=== PATIENT | female | born 1960 | race Caucasian/White ===

== ENCOUNTER 2017-07-03 07:04 | Emergency (ER) | payer MEDICARE, OTHER ==
[2017-07-03 07:40] VITALS: BP 120/76
--- NOTE | 2017-07-03 08:01 | UC ---
Cardiac HPI - HPI Summary HPI Summary: Right sided chest pain constant for two days. It hurts more take a deep breath in and to cough. She has no hx of cardiac disease or blood clots. No significant cough and no fever. - History of Current Complaint Chief Complaint: UCChestPain Stated Complaint: RIGHT SIDED UPPER CHEST PAIN Time Seen by Provider: 07/03/17 07:11 Hx Obtained From: Patient, Family/Shirt Operator Hx Last Menstrual Period: n/a Onset/Duration: Gradual Onset, Lasting Days, Still Present Timing: Constant Initial Severity: Moderate Current Severity: Moderate Chest Pain Location: Discrete at:, Right Anterior Character: Dull/Aching Aggravating Factor(s): Position, Deep Breaths Alleviating Factor(s): Rest Associated Signs & Symptoms: Positive: Back Pain - chronic back pain.. Negative : SOB - she denies air hunger but feels pain which she states makes her catch her breath but no sob at rest or with walking. PMH/Surg Hx/FS Hx/Imm Hx Previously Healthy: No - Surgical History Surgical History: Yes Surgery Procedure, Year, and Place: tubal ligation,cholecystectomy, tonsils, right elbow - Family History Known Family History: Positive: Other - no known dvt or pe. - Social History Occupation: Disabled Lives: With Family Alcohol Use: Occasionally Substance Use Type: None Smoking Status (MU): Former Smoker When Did the Patient Quit Smoking/Using Tobacco: 2008 Review of Systems Cardiovascular: Chest Pain All Other Systems Reviewed And Are Negative: Yes Physical Exam Triage Information Reviewed: Yes Appearance: Well-Appearing, No Pain Distress, Well-Nourished Vital Signs: Initial Vital Signs Temp 97.9 F 07/03/17 07:07 Pulse 52 07/03/17 07:07 Resp 18 07/03/17 07:07 BP 120/76 07/03/17 07:07 Pulse Ox 100 07/03/17 07:07 Vital Signs Reviewed: Yes Eyes: Positive: Conjunctiva Clear ENT: Positive: Normal ENT inspection. Negative: Pharyngeal erythema Neck: Positive: Supple, Nontender, No Lymphadenopathy Respiratory Exam: Normal Respiratory: Positive: Lungs clear, Normal breath sounds, No respiratory distress, No accessory muscle use. Negative: Respiratory distress, Decreased breath sounds, Accessory muscle use, Crackles, Rhonchi, Stridor, Wheezing Cardiovascular: Positive: RRR, No Murmur, Pulses Normal, Brisk Capillary Refill Abdomen Description: Positive: Nontender, No Organomegaly, Soft. Negative: Distended, Guarding Musculoskeletal Exam: Other - there is pinpoint reproducible right upper chest wall tenderness. Neurological: Positive: Muscle Tone Normal. Negative: Unresponsive Skin: Positive: rashes - back she states due to heating pad. Diagnostics - EKG Cardiac Rate: NL Cardiac Rhythm: Sinus: Normal Ectopy: None ST Segment: Normal - Differential Diagnoses - Chest Pain Differential Diagnosis/HQI/PQRI: Acute MS, ACS, Angina, Aortic Aneurysm, GI Disease, Lower Respiratory Infection, Pulmonary Edema, Pulmonary Embolism - Differential Diagnoses - Palpitations Differential Diagnosis/HQI/PQRI: Myocarditis - Clinical Impression Provider Diagnoses: right chest wall pain Discharge - Discharge Plan Condition: Good Disposition: HOME Patient Education Materials: Chest Wall Pain (ED) Referrals: Randal Tinsley MD [Primary Care Provider] -
--- NOTE | 2017-07-03 09:01 | RAD ---
INDICATION: Right-sided chest pain COMPARISON: Similar chest x-ray dated November 05, 2014 TECHNIQUE: PA and lateral views of the chest were obtained. FINDINGS: The heart and mediastinum are normal in size and contour. The lungs are grossly clear. There is no evidence of large pleural effusion. Visualized bones are normal for the patient's age. There is no radiographic evidence of free air beneath the diaphragm IMPRESSION: No radiographic evidence of acute cardiopulmonary disease.
== END 2017-07-03 08:10 | disposition home or self-care (01) ==
LOC: UCCORT 07:04
DX: R07.89 Other chest pain (principal); R00.1 Bradycardia, unspecified; Z90.49 Acquired absence of other specified parts of digestive tract; Z87.891 Personal history of nicotine dependence
CPT/HCPCS: 71020; 93005; 99211; G0463

== ENCOUNTER 2018-05-22 16:43 | Emergency (ER) | payer OTHER ==
[2018-05-22] MEDS ORDERED: NS 0.9% 1000 ML* 1,000 ML IV ONE (16:47)
--- NOTE | 2018-05-22 17:07 | RAD ---
INDICATION: Acute neurologic changes COMPARISON: None. TECHNIQUE: Contiguous axial sections of the brain were obtained from the skull base to the vertex without contrast. FINDINGS: The ventricles, cisterns and sulci are within normal limits. The arrington-white matter differentiation is adequately maintained and there is no sulcal effacement. No significant focal abnormality or mass effect is present. There is no evidence for intracranial hemorrhage. No significant focal osseous abnormality is present. The visualized portion of the paranasal sinuses appear clear. The mastoid air cells are well aerated bilaterally. IMPRESSION: Normal CT of the brain. Findings reported over the telephone to Dr. Connolly at 1703 hours
[2018-05-22 17:16] LABS: ABS Basophils 0.1 10^3/ul (0-0.2); ABS Eosinophils 0.9 10^3/ul (0-0.6); ABS Lymphocytes 0.7 10^3/ul (1.0-4.8); ABS Monocytes 0.6 10^3/ul (0-0.8); ABS Nucleated RBC 0 10^3/ul; Eosinophil % 9.4 % (0-6); Hematocrit 38 % (35-47); Hemoglobin 12.5 g/dl (12.0-16.0); Lymphocyte % 7.1 % (25-47); Mean Corpuscular HGB Conc 33 g/dl (31-36); Mean Corpuscular Hemoglobin 28 pg (27-31); Mean Corpuscular Volume 84 fL (80-97); Nucleated Red Blood Cells % 0.1; Platelet Count 209 10^3/ul (150-450); Red Blood Count 4.55 10^6/ul (4.00-5.40); Red Cell Distribution Width 14 % (10.5-15); White Blood Count 9.2 10^3/ul (3.5-10.8)
--- NOTE | 2018-05-22 17:18 | ED ---
Neurological HPI - HPI Summary HPI Summary: This patient is a 57 year old female BIBA to [facility] with a chief complaint of mechanical fall since 1400 today. Patient called EMS when she could not get back up. EMS notes that patient is confused, has slurred speech, and generalized weakness. In ED, patient is coherent and can answer questions, but is still very lethargic. Symptoms aggravated by nothing. Symptoms alleviated by nothing. Patient states that maybe the sx are a result of her taking an extra dose of her medication by mistake. - History of Current Complaint Chief Complaint: EDNeurologicalDeficit Stated Complaint: CODE PARMAR Time Seen by Provider: 05/22/18 16:45 Hx Obtained From: Patient Hx Last Menstrual Period: n/a Onset/Duration: Sudden Onset, Still Present Timing: Constant Current Severity: Moderate Number of Seizures: 0 Neurological Deficit Location: Generalized Pain Intensity: 0 Pain Scale Used: 0-10 Numeric Character: Weak, Impaired Speech, Confusion, Lethargy Aggravating: Nothing Alleviating: Nothing - Allergy/Home Medications Allergies/Adverse Reactions: Allergies Allergy/AdvReac Type Severity Reaction Status Date / Time sulfamethoxazole Allergy Unknown Verified 05/22/18 17:21 [From Bactrim] Reaction Details trimethoprim [From Bactrim] Allergy Unknown Verified 05/22/18 17:21 Reaction Details PMH/Surg Hx/FS Hx/Imm Hx Previously Healthy: Yes Opthamlomology History: Denies: Hx Legally Blind EENT History: Denies: Hx Deafness - Surgical History Surgery Procedure, Year, and Place: tubal ligation,cholecystectomy, tonsils, right elbow Infectious Disease History: No Infectious Disease History: Denies: Traveled Outside the [place] in Last 30 Days - Family History Known Family History: Positive: Other - no known dvt or pe. - Social History Alcohol Use: Occasionally Hx Substance Use: No Substance Use Type: Reports: None Hx Tobacco Use: Yes Smoking Status (MU): Former Smoker Review of Systems Negative: Fever Neurological: Other - confusion, lethargy Positive: Weakness, Slurred Speech All Other Systems Reviewed And Are Negative: Yes Physical Exam - Summary Physical Exam Summary: Appearance: Well-appearing, Well-nourished, lying in bed comfortably Skin: Warm, dry, no obvious rash Eyes: sclera anicteric, no conjunctival pallor ENT: mucous membranes moist, pharynx appears normal Neck: Supple, nontender Respiratory: Clear to auscultation, no signs of respiratory distress Cardiovascular: Normal S1, S2. No murmurs. Normal distal pulses in tibial and radial bilaterally. Abdomen: Soft, nontender, normal active bowel sounds present Musculoskeletal: Normal, Strength/ROM Intact Neurological: A&Ox3, Awake but somnolent, speech is slurred, follows commands and answers questions appropriately, CN intact Psychiatric: affect is normal, does not appear anxious or depressed Triage Information Reviewed: Yes Vital Signs On Initial Exam: Initial Vitals Pulse Resp BP Pulse Ox 58 15 111/72 93 05/22/18 16:57 05/22/18 16:57 05/22/18 16:57 05/22/18 16:57 Vital Signs Reviewed: Yes Diagnostics - Vital Signs Vital Signs Temp Pulse Resp BP Pulse Ox 05/22/18 17:03 98.4 F 58 16 111/72 98 05/22/18 17:00 13 05/22/18 16:57 58 15 111/72 93 - Laboratory Result Diagrams: 05/22/18 17:09 05/22/18 17:09 Lab Statement: Any lab studies that have been ordered have been reviewed, and results considered in the medical decision making process. - Radiology CXR Xray Interpretation: No Acute Changes - CXR reveals, No acute process. ED physician has reviewed this radiology report. Radiology Interpretation Completed By: ED Physician - CT CT Brain CT Interpretation: No Acute Changes - CT Brain reveals, per radiologist, Normal CT of the brain. Findings reported over the telephone to Dr. Connolly at 1703. ED physician has reviewed this radiology report. CT Interpretation Completed By: Radiologist - EKG 1707 Cardiac Rate: Bradycardia EKG Rhythm: Sinus Bradycardia - 59 bpm EKG Interpretation: Sinus Bradycardia (59 BPM), Low voltage, extremity and precordial leads. Course/Dx - Course Course Of Treatment: This is a 57-year-old woman who takes multiple different medications, who comes in with altered mental status after a fall. Initially this was a code parmar, but as the case has played out, it would appear this is a toxic metabolic problem, rather than a stroke. CT scan is negative. Physical exam does not show any focality to suggest a CVA. The patient was seen by our neurologist who concurs. On further history, the patient inadvertently took a double dose of her medications, which include several medications known to cause altered mental status. At present, she appears much brighter and is able to ambulate with assistance. Her says that her gait is always poor and at present she is at her baseline. He is comfortable taking her home. Assessment/Plan: This patient is a 57 year old female BIBA to [facility] with a chief complaint of mechanical fall since 1400 today. Patient called EMS when she could not get back up. EMS notes that patient is confused, has slurred speech, and generalized weakness. An EKG, taken 1708, reveals Sinus Bradycardia (59 BPM), Low voltage, extremity and precordial leads. CXR reveals, No acute process. ED physician has reviewed this radiology report. CT Brain reveals, per radiologist, Normal CT of the brain. Findings reported over the telephone to Dr. Connolly at 1703. ED physician has reviewed this radiology report. Bloodwork Obtained. Urinalysis Obtained. In the ED course the patient was given NS 0.9% 1000mL IV. Patient will be discharged with a dx of accidental drug overdose. Patient is advised to follow up with PCP in 3 days. The patient is agreeable with this plan. - Diagnoses Provider Diagnoses: Accidental drug overdose Discharge - Sign-Out/Discharge Documenting (check all that apply): Patient Departure - Discharge Plan Condition: Improved Disposition: HOME Patient Education Materials: Altered Mental Status (ED) Referrals: Randal Tinsley MD [Primary Care Provider] - Additional Instructions: Do not take any other sedating drugs through today. Tomorrow, you should be able to resume your medications as per normal. - Attestation Statements Document Initiated by Scribe: Yes Documenting Scribe: Percy Sanches Provider For Whom Poly is Documenting (Include Credential): Dao Pulliam MD Scribe Attestation: Percy Melton, scribed for Dao Pulliam MD on 05/22/18 at 1910.
[2018-05-22 17:25] LABS: INR 0.86 (0.77-1.02)
[2018-05-22 17:35] LABS: EGFR Non-African American 42.8 (>60)
[2018-05-22 18:29] VITALS: BP 106/68
--- NOTE | 2018-05-22 21:57 | CONS ---
CONSULTATION REPORT: DATE OF CONSULT: 05/22/18 - EMERGENCY DEPT HISTORY OF PRESENT ILLNESS: Initial history get more information. She is 57 years old and at roughly lunchtime, she took an extra dose of all her medicines. It is unclear which meds she takes at lunch, but I will read in all the medications she is on. She took all of them at lunchtime. According to her , a couple hours later at roughly 2 o'clock, she began to get clumsy and she fell. She therefore called an ambulance who found her having some slurred speech and possible left facial droop and they brought her here. Her CT scan is normal by report and is not up in the system yet. I spoke to the [place] doctor, who is able to pull up her recent records. There have been no recent surgeries. MEDICATIONS: She is on: 1. Amlodipine. 2. Pravastatin 40. 3. Gabapentin 800. 4. Clonazepam 1 mg. 5. Albuterol. 6. DuoNeb. 7. Zyrtec. 8. Propranolol. 9. Hydroxyzine. 10. Topamax 200. 11. Risperidone. 12. Trazodone. 13. Diclofenac. He was unable to pull up dosing frequency. REVIEW OF SYSTEMS: Her other complaint is that she has chronic neck pain, but unchanged from current. PHYSICAL EXAM: 111/72. She was alert. She thought it was April. She knew her name. NIH Stroke Scale was 1 for slurred speech. She was mildly clumsy and she said that this is new for her and she has slightly slurred speech. She has no facial weakness. Cranial nerves II through XII were intact. There was no nystagmus. Strength was 5/5. [id number] was a little slow, but no clear past pointing. Strength was full throughout without any asymmetry. Reflexes were 1. Toes were equivocal to downgoing. Chest: Clear. Cardiovascular: Regular rate and rhythm. Abdomen was soft. LABORATORY DATA: Labs are pending. IMPRESSION AND PLAN: The patient appears to have taken too many of her medicines. Many of them are sedating and can cause clumsiness. There is no side -to-side focality on her exam today that would suggest stroke and by her history , this is most likely medication overdose rather than stroke and therefore, she will be evaluated further for that, but she is not a tPA candidate. I will do a more complete note when we get her full medical history. She does have a past history of smoking. Thank you for sharing her case. [id number]/[facility] #: [id number] HANDY
--- NOTE | 2018-05-23 07:47 | RAD ---
Indication: Code arrington. History of tobacco use. Comparison: July 03, 2017 Technique: Upright AP 1815 hours Report: Moderate prominence of the interstitial markings without change accounting for suboptimal inspiration compared with the prior exam. No focal alveolar consolidation, pleural effusion, or pneumothorax. The heart, pulmonary vasculature, and mediastinal contours are unremarkable. IMPRESSION: #. Stigmata of obstructive lung disease. No acute pulmonary or cardiac process evident. R1
== END 2018-05-22 18:57 | disposition home or self-care (01) ==
LOC: ED 16:43
DX: T50.901A Poisoning by unspecified drugs, medicaments and biological substances, accidental (unintentional), initial encounter (principal); R41.82 Altered mental status, unspecified; Y92.9 Unspecified place or not applicable; R00.1 Bradycardia, unspecified; Z88.2 Allergy status to sulfonamides; Z87.891 Personal history of nicotine dependence
CPT/HCPCS: 36415; 70450; 71045; 80053; 80061; 83605; 84484; 85025; 85610; 85730; 93005; 96360; 99283